=== PATIENT | male | born 1955 | race Caucasian/White ===

== ENCOUNTER 2017-09-19 15:31 | Emergency (ER) | payer OTHER ==
[2017-09-19] MEDS ORDERED: Dexamethasone 4 mg/ml Vial ONE (19:15)
[2017-09-19] MEDS ORDERED: Ibuprofen 200 MG TAB ONE (19:15)
== END 2017-09-19 20:04 | disposition home or self-care (01) ==
LOC: ERS 15:31
DX: J02.9 Acute pharyngitis, unspecified (principal); E11.9 Type 2 diabetes mellitus without complications
CPT/HCPCS: 87081; 87430; 99283; J1100

== ENCOUNTER 2017-11-16 15:46 | Outpatient (CLI) | payer OTHER ==
--- NOTE | 2017-11-16 18:53 | MRI ---
BRAIN MRI WITHOUT CONTRAST 11/16/17 HISTORY: Vision loss. No prior comparison. FINDINGS: There is evidence of restricted diffusion within the left occipital lobe, EMULSIFICATION OPERATOR distribution. There is no ventriculomegaly or midline shift. Mild parenchymal volume loss is present. The imaged skull base flow voids are grossly patent. There is scattered paranasal sinus mucosal thickening. IMPRESSION: Recent left EMULSIFICATION OPERATOR distribution infarction. POS: [facility]
== END 2017-11-16 15:47 | disposition home or self-care (01) ==
LOC: MRI 15:46
PROVIDERS: ATTEND Psychiatry & Neurology Neurology
DX: H54.7 Unspecified visual loss (principal); I63.532 Cerebral infarction due to unspecified occlusion or stenosis of left posterior cerebral artery
CPT/HCPCS: 70551

== ENCOUNTER 2017-11-26 13:11 | Outpatient (CLI) | payer OTHER ==
--- NOTE | 2017-11-26 14:41 | CT ---
CT ARTERIOGRAM NECK WITH IV CONTRAST AND 3D MIP IMAGING: Date: 11/26/17 HISTORY: CVA. Vascular disease. FINDINGS: There is bovine origin of the great vessels from the aortic arch with minimal arterial calcification. No significant stenosis. Each vertebral artery is patent. At the level of the foramen magnum, a small focus of arterial calcif ication within the right vertebral artery results in stenosis estimated at 80%. Each carotid bifurcation is widely patent with very small amount of calcification on the left. There is also calcification within the intracranial left internal carotid artery with no significant stenos is. IMPRESSION: Mild atherosclerosis. Significant stenosis is limited to the right vertebral artery at the level of t he foramen magnum, estimated at 80%. POS: [facility]
[2017-11-26] MEDS ORDERED: Iopamidol 370 76% 100 ML VIAL ONE (15:42)
== END 2017-11-26 13:12 | disposition home or self-care (01) ==
LOC: CT 13:11
PROVIDERS: ATTEND Psychiatry & Neurology Neurology
DX: I63.211 Cerebral infarction due to unspecified occlusion or stenosis of right vertebral artery (principal)
CPT/HCPCS: 70498; 82565; 93306